=== PATIENT | female | born 1945 ===

== ENCOUNTER 2021-11-29 11:01 | Outpatient (CLI) | payer OTHER ==
[~2021-11-29 11:01] MED LIST: ALTACE2.5 M1; PROVENTIL4 MG; TRUSOPT5 ML; [UNRECOGNIZED DRUG - OTHER]; [UNRECOGNIZED DRUG - OTHER]
== END 2021-11-29 11:02 | disposition home or self-care (01) ==
LOC: SONOGRAMA 11:01
PROVIDERS: ATTEND Pathology Anatomic Pathology & Clinical Pathology
DX: E04.1 Nontoxic single thyroid nodule (principal)